=== PATIENT | female | born 2000 | race African-American/Black ===

== ENCOUNTER 2021-09-06 21:18 | Day surgery (SDC) | payer SELFPAY ==
[2021-09-06] MEDS ORDERED: hydrALAZINE 20 MG/ML VIAL SLOW IVP PRN (22:23)
[2021-09-06 22:48] LABS: Bilirubin Neg (Negative); Blood, Urine Negative (Negative); Clarity Clear (Clear); Glucose, Urine (Dipstick) Normal (Negative); Ketone, Urine Negative (Negative); Leukocyte 25 (Negative); Nitrite Negative (Negative); Protein, Urine (Dipstick) Negative (Neg-Trace); Specific Gravity, Urine 1.005 (1.002-1.036); Urobilinogen Normal mg/dL (Less than 2)
[2021-09-06 22:56] LABS: Amphetamine Not Detected (NotDetected); Barbiturates Screen Not Detected (NotDetected); Benzodiazepine Screen Not Detected (NotDetected); Cocaine Metabolite Screen Not Detected (NotDetected); Methadone Not Detected (NotDetected); Methamphetamine Not Detected (NotDetected); Opiate Screen Not Detected (NotDetected); Oxycodone Screen Not Detected (NotDetected); Phencyclidine (PCP) Not Detected (NotDetected); THC/Cannabinoid Screen Not Detected (NotDetected); Tricyclic Screen Not Detected (NotDetected)
[2021-09-06 22:59] LABS: Bacteria/HPF 1+ HPF (None Seen); RBC/HPF None Seen HPF (0-3); Transitional Epithelial 0-3 HPF (None Seen); WBC/HPF 0-3 HPF (0-3)
[2021-09-06] MEDS ORDERED: Calcium Carbonate 500 MG ChewTAB PO SCH (23:00)
[2021-09-06] MEDS ORDERED: Acetaminophen 500 MG TAB PO SCH (23:15)
[2021-09-06 23:32] LABS: Hemoglobin 12.2 g/dL (12.0-15.5); Mean Corpuscular HGB CONC 34.5 g/dL (32.0-36.0); Mean Corpuscular Hemoglobin 26.8 pg (27.0-33.0); Mean Corpuscular Volume 77.8 fl (81.6-98.3); Mean Platelet Volume 10.8 fl (7.4-10.4); Platelet Count 388 10x3/uL (150-450); RBC Distribution Width 15.6 % (11.5-14.5); Red Blood Cell (RBC) Count 4.55 10x6/uL (3.90-5.03)
[2021-09-07 00:03] LABS: HIV (1/2) Antibody/Antigen Non-Reactive (NonReactive); HIV 1/2 INDEX 0.08 S/CO (<1.00); Hep B Surf Ag Non-Reactive S/CO (NonReactive); Syphilis Antibody Nonreactive (Nonreactive); Syphilis Antibody Index 0.03 S/CO (<1.00 Non-Reactive)
[2021-09-07 00:04] LABS: HBSAg Index 0.21 S/CO (0-0.99)
[2021-09-07 13:22] LABS: Hep C IgG Ab Non-Reactive (NonReactive); Hep C Index 0.12 S/CO (0-0.79)
== END 2021-09-06 23:51 | disposition home or self-care (01) ==
LOC: CSHLD/OP 21:18
PROVIDERS: ATTEND Obstetrics & Gynecology
DX: O99.891 Other specified diseases and conditions complicating pregnancy (principal); R10.2 Pelvic and perineal pain; O09.33 Supervision of pregnancy with insufficient antenatal care, third trimester; O21.2 Late vomiting of pregnancy; Z3A.36 36 weeks gestation of pregnancy; Z87.891 Personal history of nicotine dependence
CPT/HCPCS: 36415; 76815; 80306; 81001; 85027; 86762; 86780; 86803; 86850; 86900; 86901; 87081; 87086; 87340; 87389; 99284

== ENCOUNTER 2021-09-09 11:11 | Day surgery (SDC) | payer SELFPAY ==
[2021-09-09] MEDS ORDERED: hydrALAZINE 20 MG/ML VIAL SLOW IVP PRN (12:25)
[2021-09-09] MEDS ORDERED: Lactated Ringer's 1,000 ML IV SCH (13:00)
[2021-09-09] MEDS ORDERED: diphenhydrAMINE 50 MG/ML VIAL IVP SCH (13:00)
[2021-09-09] MEDS ORDERED: Metoclopramide HCl 10 MG/2 ML VIAL IVP SCH (13:00)
== END 2021-09-09 13:15 | disposition left against medical advice (07) ==
LOC: CSHLD/OP 11:11
PROVIDERS: ATTEND Obstetrics & Gynecology
DX: O99.891 Other specified diseases and conditions complicating pregnancy (principal); R51.9 Headache, unspecified; O09.33 Supervision of pregnancy with insufficient antenatal care, third trimester; Z53.29 Procedure and treatment not carried out because of patient's decision for other reasons; Z3A.37 37 weeks gestation of pregnancy
CPT/HCPCS: 99282

== ENCOUNTER 2021-09-21 18:16 | Day surgery (SDC) | payer SELFPAY ==
[2021-09-21] MEDS ORDERED: hydrALAZINE 20 MG/ML VIAL SLOW IVP PRN (19:53)
[2021-09-21] MEDS ORDERED: Promethazine HCl 25 MG/ML VIAL IM SCH (20:00)
[2021-09-21] MEDS ORDERED: Morphine 4 MG/ML VIAL IM SCH (20:00)
== END 2021-09-21 21:15 | disposition home or self-care (01) ==
LOC: CSHLD/OP 18:16
PROVIDERS: ATTEND Obstetrics & Gynecology
DX: O47.1 False labor at or after 37 completed weeks of gestation (principal); O09.33 Supervision of pregnancy with insufficient antenatal care, third trimester; Z3A.37 37 weeks gestation of pregnancy; Z91.018 Allergy to other foods
CPT/HCPCS: 76819; J2270; J2550

== ENCOUNTER 2021-09-25 05:37 | Inpatient (IN) | payer OTHER, SELFPAY ==
[2021-09-25] MEDS ORDERED: Ondansetron PF 4 MG/2 ML Vial IVP PRN ×3 (06:11→11:53)
[2021-09-25] MEDS ORDERED: Misoprostol 200 MCG TAB PR PRN (06:11)
[2021-09-25] MEDS ORDERED: Promethazine HCl 25 MG/ML VIAL IM PRN ×2 (06:11→11:01)
[2021-09-25] MEDS ORDERED: hydrALAZINE 20 MG/ML VIAL SLOW IVP PRN ×2 (06:11→11:53)
[2021-09-25] MEDS ORDERED: Lidocaine 1% (PF) 30 ML VIAL SC PRN (06:11)
[2021-09-25] MEDS ORDERED: NS w/ Oxytocin 30 units 500 ML IV SCH ×3 (06:15→12:00)
[2021-09-25] MEDS ORDERED: Lactated Ringer's 1,000 ML IV SCH (06:15)
[2021-09-25 06:32] VITALS: BMI 39.6
[2021-09-25 06:42] LABS: Platelet Count 375 10x3/uL (150-450)
[2021-09-25 06:43] LABS: Mean Corpuscular HGB CONC 35.2 g/dL (32.0-36.0); Mean Corpuscular Hemoglobin 26.5 pg (27.0-33.0); Mean Corpuscular Volume 75.3 fl (81.6-98.3); Mean Platelet Volume 10.5 fl (7.4-10.4); RBC Distribution Width 16.3 % (11.5-14.5); Red Blood Cell (RBC) Count 4.53 10x6/uL (3.90-5.03); White Blood Cell (WBC) Count 19.5 10x3/uL (3.5-10.5)
[2021-09-25 06:44] LABS: Amphetamine Not Detected (NotDetected); Barbiturates Screen Not Detected (NotDetected); Benzodiazepine Screen Not Detected (NotDetected); Cocaine Metabolite Screen Not Detected (NotDetected); Methadone Not Detected (NotDetected); Methamphetamine Not Detected (NotDetected); Opiate Screen Not Detected (NotDetected); Oxycodone Screen Not Detected (NotDetected); Phencyclidine (PCP) Not Detected (NotDetected); THC/Cannabinoid Screen Detected (NotDetected); Tricyclic Screen Not Detected (NotDetected)
[2021-09-25 07:09] LABS: Hep B Surf Ag Non-Reactive S/CO (NonReactive)
[2021-09-25 07:11] LABS: Syphilis Antibody Nonreactive (Nonreactive); Syphilis Antibody Index 0.03 S/CO (<1.00 Non-Reactive)
[2021-09-25 07:12] LABS: HBSAg Index 0.21 S/CO (0-0.99)
[2021-09-25] MEDS ORDERED: Butorphanol Tartrate 1 MG/ML VIAL SLOW IVP PRN (07:24)
[2021-09-25] MEDS ORDERED: Butorphanol Tartrate 1 MG/ML VIAL ONE (07:33)
[2021-09-25] MEDS ORDERED: Bupivacaine/Epinephrine 0.25% 30 ML VIAL ONE (08:00)
[2021-09-25] MEDS ORDERED: Fentanyl 2 mcg/Bup 0.1% Cadd 100 ML ONE (08:05)
[2021-09-25 10:16] LABS: ALT (SGPT) 9 U/L (8-55); AST (SGOT) 18 U/L (5-34); Albumin 3.6 g/dL (3.5-5.0); Alkaline Phosphatase 187 U/L (40-100); Anion Gap 17 mmol/L (10-20); BUN (Urea Nitrogen) Less than 4 mg/dL (7.0-18.7); Bilirubin, Total 0.6 mg/dL (0.2-1.2); Calc. Creatinine Clearance 178 mL/min (70-130); Calcium 9.3 mg/dL (7.8-10.44); Carbon Dioxide 22 mmol/L (22-29); Chloride 104 mmol/L (98-107); Globulin 3.6 g/dL (2.4-3.5); Glucose 80 mg/dL (70-105); Potassium 3.7 mmol/L (3.5-5.1); Protein, Total 7.2 g/dL (6.0-8.3); Sodium 139 mmol/L (136-145)
[2021-09-25] MEDS ORDERED: diphenhydrAMINE 50 MG/ML VIAL IVP PRN (11:01)
[2021-09-25] MEDS ORDERED: ePHEDrine Sulfate 50 MG/10 ML VIAL SLOW IVP PRN (11:01)
[2021-09-25] MEDS ORDERED: Lactated Ringer's 500 ML IV PRN (11:01)
[2021-09-25] MEDS ORDERED: Hydrocerin (Eucerin) Cream 120 gm Jar TOP PRN (11:01)
[2021-09-25] MEDS ORDERED: Naloxone HCl 0.4 mg/ml Vial IVP PRN ×2 (11:01)
[2021-09-25] MEDS ORDERED: Fentanyl 2 mcg/Bupivacaine 0.1% Cassette 100 ML EPIDURAL SCH (11:15)
[2021-09-25] MEDS ORDERED: Communication Order-Pharmacy FS SCH (11:15)
[2021-09-25 11:25] LABS: SARS-CoV-2 NAA Rapid Test Not Detected (NotDetected)
[2021-09-25] MEDS ORDERED: Boostrix 0.5 ML (Tdap) VIAL IM ONE (11:53)
[2021-09-25] MEDS ORDERED: Bisacodyl 10 MG SUPP PR PRN (11:53)
[2021-09-25] MEDS ORDERED: Preparation H Ointment 28 GM TUBE PR PRN (11:53)
[2021-09-25] MEDS ORDERED: Lanolin Ointment 7 GM TUBE TOP PRN (11:53)
[2021-09-25] MEDS ORDERED: Misoprostol 200 MCG TAB VAG PRN (11:53)
[2021-09-25] MEDS ORDERED: Milk Of Magnesia 30 ML UDCUP PO PRN (11:53)
[2021-09-25] MEDS ORDERED: diphenhydrAMINE 25 MG CAP PO PRN (11:53)
[2021-09-25] MEDS: Ibuprofen 800 MG TAB PO SCH ×2 (14:33→21:29)
[2021-09-25] MEDS ORDERED: Ferrous Sulfate 325 MG TAB PO SCH (17:00)
[2021-09-25] MEDS: Acetaminophen 325 MG TAB PO PRN (18:04)
[2021-09-25] MEDS ORDERED: Docusate 100 MG CAP PO SCH (21:00)
[2021-09-26] MEDS: Acetaminophen 325 MG TAB PO PRN ×3 (03:15→14:39)
[2021-09-26] MEDS: Ibuprofen 800 MG TAB PO SCH (04:50)
[2021-09-26] MEDS ORDERED: Prenatal Vitamin 1 TAB PO SCH (09:00)
[2021-09-26] MEDS: Ibuprofen 400 MG TAB PO SCH ×4 (09:03→21:47)
[2021-09-27] MEDS: Ibuprofen 400 MG TAB PO SCH ×5 (00:28→17:17)
[2021-09-27 08:10] VITALS: BP 111/68; TEMP 97.8
== END 2021-09-27 20:05 | disposition home or self-care (01) | DRG 807 ==
LOC: CSHLD/OP 05:37 → CSHLD 06:33 → CSHPP 14:30
PROVIDERS: ADMIT Obstetrics & Gynecology; ATTEND Obstetrics & Gynecology
PROC: 10E0XZZ Delivery of Products of Conception, External Approach (ICD-10-PCS; principal; 2021-09-25)
DX: O99.52 Diseases of the respiratory system complicating childbirth (principal); Z37.0 Single live birth; O99.324 Drug use complicating childbirth; J45.909 Unspecified asthma, uncomplicated; Z3A.37 37 weeks gestation of pregnancy; Z91.018 Allergy to other foods; Z20.822 Contact with and (suspected) exposure to COVID-19; F12.90 Cannabis use, unspecified, uncomplicated
CPT/HCPCS: 51702; 80053; 80306; 82570; 84156; 85027; 86780; 86850; 86900; 86901; 87340; 99285; J0595; J2590; U0002